=== PATIENT | female | born 1985 | race Caucasian/White ===

== ENCOUNTER 2016-05-24 16:18 | Emergency (ER) | payer OTHER ==
[2016-05-24 17:09] VITALS: O2SAT 100
--- NOTE | 2016-05-24 19:27 | C.PDOC ---
History Of Present Illness 30F c/o feeling depressed for the last week. she at times has felt "like I want to " but denies any suicidal ideation or plan. she reports appetite and sleep disturbance. she says she first developed depression after giving to her child 5 years ago but has never taken medication. however now she wants to get help and is amenable to taking medication. denies any other complaints. Time Seen by Provider: 05/24/16 17:30 Chief Complaint (Nursing): Psychiatric Evaluation Past Medical History Vital Signs: Last Vital Signs Temp 98.1 F 05/24/16 22:00 Pulse 91 H 05/24/16 22:00 Resp 20 05/24/16 22:00 BP 123/83 05/24/16 22:00 Pulse Ox 100 05/24/16 22:00 - Medical History PMH: Denies: Diabetes, Hepatitis, HIV, HTN, Seizures, Sexually Transmitted Disease Surgical History: Family History: States: Unknown Family Hx - Social History Hx Tobacco Use: No Hx Alcohol Use: Yes Hx Substance Use: No - Immunization History Hx Tetanus Toxoid Vaccination: No Hx Influenza Vaccination: No Hx Pneumococcal Vaccination: No Review Of Systems Except As Marked, All Systems Reviewed And Found Negative. (exc as noted in hpi) Constitutional: Negative for: Fever, Chills, Weakness Cardiovascular: Negative for: Chest Pain Respiratory: Negative for: Cough, Shortness of Breath Gastrointestinal: Negative for: Nausea, Vomiting, Abdominal Pain Genitourinary: Negative for: Dysuria Neurological: Negative for: Weakness, Numbness, Headache Psych: Positive for: Depression. Negative for: Psychosis, Suicidal ideation Physical Exam - Physical Exam Appears: Well, Non-toxic, No Acute Distress Skin: Warm, Dry Head: Atraumatic Eye(s): bilateral: PERRL Oral Mucosa: Moist Cardiovascular: Rhythm Regular Respiratory: No Decreased Breath Sounds, No Accessory Muscle Use Gastrointestinal/Abdominal: Soft, No Tenderness Extremity: No Swelling Extremity: Bilateral: Atraumatic Pulses: Left Radial: Normal, Right Radial: Normal Neurological/Psych: Oriented x3, Other (no focal deficits) ED Course And Treatment - Laboratory Results Result Diagrams: 05/24/16 19:54 05/24/16 19:54 ECG: Interpreted By Me, Viewed By Me ECG Rhythm: Sinus Rhythm ECG Interpretation: Normal Rate From EC (bpm) O2 Sat by Pulse Oximetry: 100 Pulse Ox Interpretation: Normal Medical Decision Making Medical Decision Making: psych evaluated the pt and cleared for dc w outpt psych follow up Disposition - Disposition Referrals: [facility] [Outside] Disposition: HOME/ ROUTINE Disposition Time: 22:00 Condition: GOOD Additional Instructions: Please follow up with resources provided by the counselor. Return to the ER for any worsening symptoms or for any other concerns. Forms: Gen Discharge Inst Citizen Of [place] Print Language: MONGOLIAN - Clinical Impression Clinical Impression: Depression
[2016-05-24 20:14] LABS: CHLORIDE 98 mmol/L (98-107); POTASSIUM 3.7 mmol/L (3.6-5.2); SODIUM 141 mmol/L (132-148)
[2016-05-24 20:16] LABS: ALB/GLOB RATIO 1.2 (1.0-2.1); ALKALINE PHOSPHATASE 47 U/L (38-126); AST/SGOT 23 U/L (14-36); BILIRUBIN,TOTAL 0.3 mg/dL (0.2-1.3); BLOOD UREA NITROGEN 14 mg/dL (7-17); CARBON DIOXIDE 25 mmol/L (22-30); GFR AFRICAN-AMERICAN > 60
[2016-05-24 20:17] LABS: ALCOHOL SERUM < 10 mg/dl (0-10); ALT/SGPT 19 U/L (9-52); CALCIUM 9.6 mg/dl (8.6-10.4); GLUCOSE,RANDOM 84 mg/dL (65-105)
[2016-05-24 20:19] LABS: BASO % 0.3 % (0.0-2.0); EOS # 0.1 K/uL (0.0-0.7); EOS % 1.3 % (0.0-4.0); HEMATOCRIT 36.7 % (34.0-47.0); LYMPH # 3.3 K/uL (1.0-4.3); LYMPH % 35.4 % (20.0-40.0); MEAN CELL VOLUME 81.2 fL (81.0-99.0); MEAN CORPUSCULAR HEMOGLOBIN 26.4 pg (27.0-31.0); MEAN CORPUSCULAR HGB CONC 32.5 g/dL (33.0-37.0); MEAN PLATELET VOLUME 8.8 fL (7.2-11.7); MONO # 0.6 K/uL (0.0-0.8); RED CELL DISTRIBUTION WIDTH 17.3 % (11.5-14.5); WHITE BLOOD COUNT 9.2 K/uL (4.8-10.8)
[2016-05-24 20:23] LABS: RBC URINE 3 /hpf (0-3); URINE BILIRUBIN NEGATIVE (NEGATIVE); URINE BLOOD 1+ (NEGATIVE); URINE COLOR Straw (YELLOW); URINE GLUCOSE (UA) NORMAL (Normal); URINE KETONE NEGATIVE (NEGATIVE); URINE LEUKOCYTE ESTERASE 2+ Leu/uL (Negative); URINE PROTEIN NEGATIVE (NEGATIVE); URINE UROBILINOGEN NORMAL mg/dL (0.2-1.0); WBC URINE 15 /hpf (0-5)
[2016-05-24 23:16] VITALS: BP 123/83; PULSE 91; RESP 20; TEMP 98.1
--- NOTE | 2016-05-25 20:04 | CARD ---
APPROVED REPORT EKG Measurement Heart [id number] <Conclusion> Normal sinus rhythm Normal ECG
== END 2016-05-24 22:10 | disposition home or self-care (01) ==
LOC: C.ER 16:18
DX: F32.9 Major depressive disorder, single episode, unspecified (principal)

== ENCOUNTER 2017-05-27 10:54 | Emergency (ER) | payer OTHER ==
[2017-05-27 11:04] VITALS: BMI 33.3
[2017-05-27 11:10] VITALS: O2SAT 100
--- NOTE | 2017-05-27 11:37 | C.PDOC ---
History Of Present Illness 31 year old female presents to the ER with a complaint of discomfort when urinating and urinary frequency for the past 3 days. Denies fever or vomiting. Time Seen by Provider: 05/27/17 11:21 Chief Complaint (Nursing): Female Genitourinary History Per: Patient History/Exam Limitations: no limitations Onset/Duration Of Symptoms: Days Current Symptoms Are (Timing): Still Present Associated Symptoms: Urinary Symptoms (Discomfort, Frequency). denies: Fever, Vomiting Alleviating Factors: None Recent travel outside of the [place]: No Abnormal Vaginal Bleeding: No Past Medical History Reviewed: Historical Data, Nursing Documentation, Vital Signs Vital Signs: Last Vital Signs Temp 97.9 F 05/27/17 11:04 Pulse 81 05/27/17 11:04 Resp 17 05/27/17 11:04 BP 121/98 H 05/27/17 11:04 Pulse Ox 100 05/27/17 11:42 Surgical History: Family History: States: Unknown Family Hx - Social History Hx Tobacco Use: No Hx Alcohol Use: Yes Hx Substance Use: No - Immunization History Hx Tetanus Toxoid Vaccination: No Hx Influenza Vaccination: No Hx Pneumococcal Vaccination: No Review Of Systems Except As Marked, All Systems Reviewed And Found Negative. Constitutional: Negative for: Fever Gastrointestinal: Negative for: Vomiting Genitourinary: Positive for: Dysuria, Frequency Physical Exam - Physical Exam Additional Physical Exam Comments: Constitutional: No acute distress. Head: Normocephalic. Atraumatic. Eyes: PERRL. ENT: Moist mucous membranes. Neck: Supple. Cardiovascular: Regular rate. Radial pulse 2+ bilaterally. Chest: No tenderness. Respiratory: Clear to auscultation bilaterally. GI: Soft. Nontender. Nondistended. Back: No CVA tenderness. Musculoskeletal: No tenderness or swelling of extremities. Skin: No rash. Neurologic: Alert, no focal deficit. ED Course And Treatment O2 Sat by Pulse Oximetry: 100 (Room air) Pulse Ox Interpretation: Normal Medical Decision Making Medical Decision Making: Plan: * Urinalysis UA negative. Patient states she thinks it is possible she has an STD. Treated empirically. Will give OBGYN follow up. Disposition - Disposition [facility]errals[facility] [Outside] Disposition: HOME/ ROUTINE Disposition Time: 12:35 Condition: STABLE Instructions: Sexually-Transmitted Diseases Forms: [facility] (Guamanian) - Clinical Impression Clinical Impression: Dysuria - Scribe Statement The provider has reviewed the documentation as recorded by the Scribe Claudio Krause All medical record entries made by the Scribe were at my direction and personally dictated by me. I have reviewed the chart and agree that the record accurately reflects my personal performance of the history, physical exam, medical decision making, and the department course for this patient. I have also personally directed, reviewed, and agree with the discharge instructions and disposition.
[2017-05-27 11:51] LABS: HCG,QUALITATIVE URINE NEGATIVE (NEGATIVE)
[2017-05-27 11:59] LABS: SQUAMOUS EPITHIAL 12 /hpf (0-5); URINE BILIRUBIN NEGATIVE (NEGATIVE); URINE BLOOD 2+ (NEGATIVE); URINE CLARITY Hazy (Clear); URINE COLOR Yellow (YELLOW); URINE GLUCOSE (UA) NORMAL (Normal); URINE LEUKOCYTE ESTERASE NEG Leu/uL (Negative); URINE PROTEIN NEGATIVE (NEGATIVE); URINE UROBILINOGEN NORMAL mg/dL (0.2-1.0)
[2017-05-27] MEDS ORDERED: cefTRIAXone 1 gm in Water For Injection 2.1 ML IM ONE (12:33)
[2017-05-27 13:13] VITALS: BP 124/78; PULSE 76; RESP 18; TEMP 98.2
== END 2017-05-27 13:13 | disposition home or self-care (01) ==
LOC: C.ER 10:54
DX: R30.0 Dysuria (principal)
CPT/HCPCS: 81001; 84703; 87086; 87491; 87591; 96372; 99284; J0696